=== PATIENT | male | born 1965 | race Two or more races ===

== ENCOUNTER 2020-10-13 10:42 | Outpatient (CLI) | payer OTHER | END 2020-10-15 14:55 | disposition home or self-care (01) | LOC: OFIC 805 10:42 | PROVIDERS: ATTEND Otolaryngology Otology & Neurotology | DX: H93.12 Tinnitus, left ear (principal); H81.02 Meniere's disease, left ear; H91.8X2 Other specified hearing loss, left ear ==

== ENCOUNTER 2020-10-27 16:14 | Outpatient (CLI) | payer OTHER | END 2020-10-27 17:20 | disposition home or self-care (01) | LOC: OFIC 805 16:14 | PROVIDERS: ATTEND Otolaryngology Otology & Neurotology | DX: H93.12 Tinnitus, left ear (principal); H81.02 Meniere's disease, left ear; H91.8X2 Other specified hearing loss, left ear ==

== ENCOUNTER 2021-02-23 13:45 | Outpatient (CLI) | payer OTHER | END 2021-02-23 14:23 | disposition home or self-care (01) | LOC: OFIC 805 13:45 | PROVIDERS: ATTEND Otolaryngology Otology & Neurotology | DX: H93.12 Tinnitus, left ear (principal); H81.02 Meniere's disease, left ear; H91.8X2 Other specified hearing loss, left ear ==